=== PATIENT | female | born 1985 | race Two or more races ===

== ENCOUNTER → 2017-06-09 | Outpatient (CLI) | payer MEDICAID ==
[~2017-06-09] VITALS: Ht 157.5 cm; Wt 85.3 kg
== END | disposition home or self-care (01) ==
LOC: Rad HDHVI 13:26
PROVIDERS: ATTEND Internal Medicine Cardiovascular Disease
DX: R94.31 Abnormal electrocardiogram [ECG] [EKG] (principal); I45.10 Unspecified right bundle-branch block; R00.2 Palpitations; R07.89 Other chest pain
CPT/HCPCS: 93017; 93306